=== PATIENT | female | born 1985 | race Caucasian/White ===

== ENCOUNTER 2018-08-01 06:17 | Inpatient (IN) | payer BC ==
[2018-08-01 06:45] VITALS: BMI 26.6
[2018-08-01] MEDS ORDERED: Nalbuphine HCL 10 mg/ml Ampule IVP PRN (06:45)
[2018-08-01] MEDS ORDERED: Oxytocin 30 UNIT 30 UNITS/500 ML BAG IV ONE ×2 (06:47→10:20)
[2018-08-01] MEDS ORDERED: Phenaphthazine-PH Test Paper VI ONE (06:48)
[2018-08-01] MEDS ORDERED: Nalbuphine 20 mg/ml Inj (1 ml) ONE (07:02)
[2018-08-01] MEDS: Lactated Ringer's 1,000 ML IV SCH ×4 (07:05→15:30)
[2018-08-01] MEDS ORDERED: ceFAZolin 2 GM in Sodium Chloride 0.9% 100 ML IVPB ONE ×2 (07:12→22:58)
[2018-08-01 07:25] LABS: HEMOGLOBIN 13.5 g/dL (12.0-16.0); MEAN CELL VOLUME 97.7 fl (81.0-99.0); MEAN CORPUSCULAR HEMOGLOBIN 33.9 pg (27.0-31.0); MEAN CORPUSCULAR HGB CONC 34.7 g/dL (33.0-37.0); RED CELL DISTRIBUTION WIDTH 12.5 % (11.5-14.5); WHITE BLOOD COUNT 10.7 K/uL (4.8-10.8)
[2018-08-01] MEDS ORDERED: Nalbuphine 20 mg/ml Inj (1 ml) IVP PRN (07:30)
[2018-08-01] MEDS ORDERED: Fentanyl/Bupivacaine HCl 250 ML EPI ONE (07:45)
[2018-08-01] MEDS ORDERED: ePHEDrine 50 mg/ml Inj ONE (08:53)
[2018-08-01] MEDS ORDERED: ceFAZolin 1 GM in Sodium Chloride 0.9% 50 ML IVPB SCH (09:00)
[2018-08-01] MEDS ORDERED: Alum-Mag Hydrox-Simethicone Susp (30 mL) PO PRN (14:49)
--- NOTE | 2018-08-01 15:40 | OBPN ---
Datetime: 08/01/2018 15:00 IP Progress Impression Other: decreased Urine output IP Progress Impression: Normal progression of labor; Reassuring heart rate IP Informed Consent Obtain: Vaginal Delivery; Risks, Benefits and Alternatives Discussed IP Progress Plan: Augmentation; Cervical Ripening; Anticipate Vaginal Delivery Membranes, Provider: Ruptured Contraction Comments Provider: 2-3m FHR - Baseline A Provider: 130 Presentation-Admit: Vertex IP Progress Note Comment: OB Hospitalist on-call. She was seen earlier today. She was admitted in latent phase of labor. She was given epidural and felt much better. She was re-echecked 10:20am...noted to be 3cm/AROM for augmentation (this was dis cussed prior to AROM/she agreed). She feels fine now. She was noted to have decreased urine output/ given 2 liter IVF SVE 6-7 cm / 100% / station ... Pitocin at 8miu/h A: Active phase of labor GBS+ Rh neg Decreased urine output ? position of eng[place] catheter (re-positioned) PLAN: continue pitocin; check BUN/Cr; monitor BP/Urine output ; anticiate (last sono last we ek 7.5lb) NICHD Accel Fetus A IP Provider: 15X15 FHR Category Provider Fetus A: Category I NICHD Variability Prov Fetus A: Moderate 6-25bpm Dilatation, Provider: 6-7 Effacement, Provider: 100 Station, Provider: 0 NICHD Decel Fetus A IP Provider: None Datetime: 08/01/2018 06:56 Vital Signs Provider: Reviewed; Within Normal Limits
[2018-08-01 16:02] LABS: ALBUMIN 3.4 g/dL (3.5-5.0); ALT/SGPT 22 U/L (9-52); AST/SGOT 21 U/L (14-36); BLOOD UREA NITROGEN 11 mg/dl (7-17); CALCIUM 8.8 mg/dL (8.4-10.2); GFR NON-AFRICAN AMERICAN > 60
--- NOTE | 2018-08-01 17:16 | CP.PCM.CON ---
History of Present Illness - History of Present Illness History of Present Illness: 32 y/o woman admitted to labor and delivery unit with uterine contractions. Medicine consult called for decreased urine output. Currently she is s/p epidural injection and on Pitocin infusion for labor induction. Patient feels well, complains of some abdominal pressure only . No history of any renal problems, HTN, preeclampsia Her BP is stable 110/ 56 and has been within normal parameters all day. Patient has been NPO since her contractions started and has been on IV RL total 2700 ml input .Golden catheter is in place with clear urine output ranging from 75-50-125 ml/hr BMP showed normal renal fxn BUN/Cr 11/0.5 with GFR > 60 ml Patient denies any CP, SOB Allergies ; PCN ( vomiting ) PMH ; None Medications; vitamins family history : none Surgery ; nasal bone fracture Social history : , lives in [place] with , unemployed , first , denies smoking ETOH or drug abuse Code status; full Review of Systems - Review of Systems All systems: reviewed and no additional remarkable complaints except Past Patient History - Infectious Disease Hx of Infectious Diseases: None - Tetanus Immunizations Tetanus Immunization: Unknown - Past Medical History & Family History Past Medical History?: No Past Family History: Reviewed and not pertinent - Past Social History Smoking Status: Never Smoked Cigar Use: No Alcohol: None Home Situation {Lives}: With Family Domestic Violence: Negative Meds Allergies/Adverse Reactions: Allergies Allergy/AdvReac Type Severity Reaction Status Date / Time Penicillins AdvReac VOMITING Verified 08/01/18 07:23 - Medications Medications: Current Medications Al Hydrox/Mg Hydrox/Simethicone (Maalox Plus 30 Ml) 30 ml PO Q4 PRN PRN Reason: Indigestion / Heartburn Last Admin: 08/01/18 15:17 Dose: 30 ml Lactated Ringer's (Lactated Ringer's) 1,000 mls @ 125 mls/hr IV .Q8H MARY JANE Last Admin: 08/01/18 15:30 Dose: 125 mls/hr OXYTOCIN/0.9 % NS (Oxytocin 20 Unit/1000 Ml-Ns) 20 unit in 1,000 mls @ 125 mls/hr IV .Q8H MARY JANE; Protocol Cefazolin Sodium 1 gm/ Sodium (Chloride) 50 mls @ 50 mls/hr IVPB Q8 MARY JANE; Protocol Last Admin: 08/01/18 15:45 Dose: 50 mls/hr Fentanyl/Bupivacaine HCl (Marcaine 0.125% With Fentanyl 2 Mcg/Ml Premix) 250 mls @ 10 mls/hr EPI .Q24H ONE Stop: 08/02/18 07:44 Last Admin: 08/01/18 08:48 Dose: 10 mls/hr Oxytocin (Pitocin) 30 units in 500 mls @ 2 mls/hr IV .Q24H ONE; Protocol Stop: 08/02/18 10:19 Last Admin: 08/01/18 10:35 Dose: 2 mls/hr Nalbuphine HCl (Nubain) 10 mg IVP ONCE PRN PRN Reason: Pain, moderate (4-7) Last Admin: 08/01/18 07:05 Dose: 10 mg Physical Exam - Constitutional Appears: Non-toxic, No Acute Distress Additional comments: - Head Exam Head Exam: ATRAUMATIC, NORMAL INSPECTION, NORMOCEPHALIC - Eye Exam Eye Exam: Normal appearance, PERRL Pupil Exam: NORMAL ACCOMODATION - ENT Exam ENT Exam: Mucous Membranes Moist, Normal Exam - Neck Exam Neck exam: Positive for: Full Rom, Normal Inspection - Respiratory Exam Respiratory Exam: Clear to Auscultation Bilateral, NORMAL BREATHING PATTERN. absent: Respiratory Distress - Cardiovascular Exam Cardiovascular Exam: REGULAR RHYTHM, +S1, +S2. absent: JVD - GI/Abdominal Exam Additional comments: - Rectal Exam Rectal Exam: Deferred - Extremities Exam Extremities exam: Positive for: normal capillary refill, normal inspection, pedal pulses present. Negative for: calf tenderness, pedal edema - Back Exam Back exam: NORMAL INSPECTION - Neurological Exam Neurological exam: Alert, CN II-XII Intact, Oriented x3 - Psychiatric Exam Psychiatric exam: Normal Affect - Skin Skin Exam: Dry, Intact, Normal Color, Warm Results - Labs Result Diagrams: 08/01/18 06:45 08/01/18 15:12 Labs: Laboratory Results - last 24 hr 08/01/18 08/01/18 08/01/18 06:45 06:45 09:40 WBC 10.7 RBC 4.00 Hgb 13.5 Hct 39.1 MCV 97.7 MCH 33.9 H MCHC 34.7 RDW 12.5 Plt Count 191 Sodium Potassium Chloride Carbon Dioxide Anion Gap BUN Creatinine Est GFR ( Amer) Est GFR (Non-Af Amer) Random Glucose Calcium Total Bilirubin AST ALT Alkaline Phosphatase Total Protein Albumin Globulin Albumin/Globulin Ratio Blood Type A NEGATIVE Blood Type Confirm A NEGATIVE Antibody Screen Negative BBK History Checked No verified bt 08/01/18 15:12 WBC RBC Hgb Hct MCV MCH MCHC RDW Plt Count Sodium 137 Potassium 4.3 Chloride 106 Carbon Dioxide 26 Anion Gap 9 L BUN 11 Creatinine 0.5 L Est GFR ( Amer) > 60 Est GFR (Non-Af Amer) > 60 Random Glucose 78 Calcium 8.8 Total Bilirubin 0.5 AST 21 ALT 22 Alkaline Phosphatase 108 Total Protein 6.6 Albumin 3.4 L Globulin 3.2 Albumin/Globulin Ratio 1.0 Blood Type Blood Type Confirm Antibody Screen BBK History Checked Assessment & Plan - Assessment and Plan (Free Text) Assessment: 32 y/o woman admitted to labor and delivery unit with uterine contractions. Medicine consult called for decreased urine output. At present her urine output is adequate ranging from 125 -- 50--75 ml /hr with normal kidney fxn .( normal range 33- 90 ml/hr ) Golden catheter is draining clear urine Continue hydration for now Re consult if her urine output is below 30 ml/hr despite hydration
[2018-08-01 17:54] LABS: SQUAMOUS EPITHIAL 1 /hpf (0-5); URINE BACTERIA RARE (<OCC); URINE BILIRUBIN NEGATIVE (NEGATIVE); URINE BLOOD NEGATIVE (NEGATIVE); URINE CLARITY CLOUDY (Clear); URINE COLOR YELLOW (YELLOW); URINE GLUCOSE (UA) NEG (Normal); URINE LEUKOCYTE ESTERASE TRACE Leu/uL (Negative); URINE PROTEIN 30 mg/dL (NEGATIVE); URINE UROBILINOGEN 0.2-1.0 mg/dL (0.2-1.0)
--- NOTE | 2018-08-01 19:03 | OBPN ---
Datetime: 08/01/2018 18:55 IP Progress Impression Other: Second stage of labor IP Progress Impression: Normal progression of labor IP Progress Plan: Continue present management; Augmentation; Anticipate Vaginal Delivery Membranes, Provider: Ruptured Contraction Comments Provider: 1-3m FHR - Baseline A Provider: 140 Presentation-Admit: Vertex IP Progress Note Comment: Notified of decelratons noted with some CTX (not everyone). She feels pres sure SVE 10cm FHR Accels noted with scalp stimulatoin Second stage of labor PLAN: pitocin at 8miu/h...will decrease Pitocin...will have her start pushing NICHD Accel Fetus A IP Provider: 15X15 FHR Category Provider Fetus A: Category II NICHD Variability Prov Fetus A: Moderate 6-25bpm Dilatation, Provider: 10 Effacement, Provider: 100 Station, Provider: 0 NICHD Decel Fetus A IP Provider: Variable
[2018-08-01] MEDS ORDERED: ceFAZolin IV 1 gm in Dextrose 1 GM/50 ML BAG IVPB SCH (22:00)
[2018-08-01] MEDS ORDERED: ceFAZolin 2 GM in Sodium Chloride 0.9% 100 ML IVPB STA (22:56)
--- NOTE | 2018-08-01 23:04 | OBPN ---
Datetime: 08/01/2018 22:50 IP Progress Impression: Arrest of dilatation/descent IP Informed Consent Obtain: Section Delivery; Risks, Benefits and Alternatives Discussed IP Progress Plan: Deliver- Section Presentation-Admit: Vertex IP Progress Note Comment: Epidural was shut off<1h ago ... pushing for 3h Failure of descent PLAN: C/S - infromed consent obtianed Dilatation, Provider: 10 Effacement, Provider: 100 Station, Provider: 1
[2018-08-01] MEDS ORDERED: Lidocaine 2% MPF (5 ml) Inj ONE (23:05)
[2018-08-01] MEDS ORDERED: Phenylephrine 10 mg/ml Inj ONE (23:09)
[2018-08-01] MEDS ORDERED: Propofol 10 mg/ml Inj (20 ML) ONE (23:23)
[2018-08-01] MEDS ORDERED: Succinylcholine 200 mg/10 ml Inj IV ONE (23:24)
[2018-08-01] MEDS ORDERED: Midazolam 2 MG/2 ML VIAL ONE ×2 (23:46→23:47)
[2018-08-01] MEDS ORDERED: Ketamine 50 mg/ml Inj (10 ml) ONE (23:49)
[2018-08-01] MEDS ORDERED: Flumazenil 0.1 mg/ml Inj (5ml) IVP ONE (23:52)
[2018-08-01] MEDS ORDERED: Esmolol 100 mg/10ml Inj IV ONE (23:54)
[2018-08-02] MEDS ORDERED: Absorbable Gelatin Sponge Size 12-7 ONE (00:05)
[2018-08-02] MEDS ORDERED: Propofol 10 mg/ml Inj (20 ML) ONE (00:17)
[2018-08-02] MEDS: OXYTOCIN/0.9 % NS 20 UNIT/1,000 ML BAG IV SCH ×2 (01:00→13:12)
[2018-08-02] MEDS ORDERED: OXYTOCIN/0.9 % NS 20 UNIT/1,000 ML BAG IV SCH ×2 (01:00→16:18)
[2018-08-02] MEDS ORDERED: DiphenhydrAMINE 50 mg/ml Inj IVP PRN ×2 (01:00→16:18)
[2018-08-02 07:23] LABS: HEMOGLOBIN 9.9 g/dL (12.0-16.0); MEAN CORPUSCULAR HEMOGLOBIN 33.8 pg (27.0-31.0); MEAN CORPUSCULAR HGB CONC 33.8 g/dL (33.0-37.0); RBC 2.94 Mil/uL (3.80-5.20); RED CELL DISTRIBUTION WIDTH 12.5 % (11.5-14.5)
[2018-08-02 07:50] LABS: MEAN CELL VOLUME 99.9 fl (81.0-99.0)
[2018-08-02] MEDS ORDERED: Multivitamin With Minerals Tab PO SCH (09:00)
--- NOTE | 2018-08-02 09:42 | OBPPN ---
Datetime: 08/02/2018 09:39 PP Pain Prov: Within normal limits PP Nausea Prov: Denies PP Flatus Prov: Yes PP Breasts Prov: Not Done PP Heart Prov: Normal PP Lungs Prov: Normal PP Abdomen/Uterus Prov: Normal PP Lochia Prov: Not Done PP Vulva/Perineum Prov: Not Done PP CVA Tenderness Prov: Normal PP Extremities Prov: Normal PP Impression Prov: Normal progression PP Plan Prov: Continue present management PP Progress Note Prov: Patient doing well ambulating tolerating diet Vital signs stable afebrile Uterus firm below the umbilicus Incision clean dry and intact day #1 Ambulate, regular diet, analgesias needed DC IV fluid and Golden catheter Vital Signs Provider PP: Reviewed
[2018-08-02] MEDS ORDERED: Nalbuphine HCL 10 mg/ml Ampule IVP PRN (16:18)
[2018-08-02] MEDS ORDERED: Alum-Mag Hydrox-Simethicone Susp (30 mL) PO PRN (16:18)
[2018-08-02] MEDS ORDERED: Influenza Vaccine (5 YR UP)/PF 60 MCG/0.5 ML SYR IM ONE (19:02)
[2018-08-02] MEDS: Lactated Ringer's 1,000 ML IV SCH (20:27)
[2018-08-03] MEDS: Lactated Ringer's 1,000 ML IV SCH (04:27)
[2018-08-03] MEDS: Multivitamin With Minerals Tab PO SCH (09:51)
[2018-08-03] MEDS: Oxycodone/Acetaminophen 5/325 mg Tab PO PRN ×3 (09:51→20:28)
[2018-08-03] MEDS ORDERED: Influenza Vaccine (5 YR UP)/PF 60 MCG/0.5 ML SYR IM ONE (10:00)
[2018-08-03] MEDS: Simethicone 80 mg Chewtab PO PRN (20:27)
[2018-08-04] MEDS: Oxycodone/Acetaminophen 5/325 mg Tab PO PRN ×2 (01:24→06:43)
--- NOTE | 2018-08-04 03:46 | OBPPN ---
Datetime: 08/03/2018 12:41 PP Pain Prov: Within normal limits PP Nausea Prov: Denies PP Flatus Prov: Yes PP Breasts Prov: Normal PP Heart Prov: Normal PP Lungs Prov: Normal PP Abdomen/Uterus Prov: Normal PP Lochia Prov: Normal PP Vulva/Perineum Prov: Normal PP CVA Tenderness Prov: Normal PP Extremities Prov: Normal PP Comments Phys Exam Prov: Abdomen soft, nontender, nondistended Uterus firm, below umbilicus Incision clean, dry, intact No deep calf tenderness bilaterally PP Impression Prov: Normal progression PP Plan Prov: Continue present management PP Progress Note Prov: Postoperative day #2 status post , patient recovering well Pain control Patient out of bed and ambulating Regular diet Anticipate discharge home tomorrow IP PP Procedures: None Vital Signs Provider PP: Reviewed; Within Normal Limits
--- NOTE | 2018-08-04 08:27 | OP ---
PROCEDURE DATE: 08/01/2018 PREOPERATIVE DIAGNOSIS: Failure of descent. POSTOPERATIVE DIAGNOSIS: Failure of descent. PROCEDURE: Primary low transverse section via Pfannenstiel incision. SURGEON: Evelio Linn DO SPEECH AND DRAMA TEACHER: Dylan Villafuerte MD (Dr. Dylan Villafuerte is a board certified OB[employer] physician who was available for this typical case. He was present from the time of incision through the time of delivery to the time of skin closure. His presence was vital and necessary for the procedure). SECOND SPEECH AND DRAMA TEACHER: PGY-1, Dr. Ramin Chauhan. ANESTHESIOLOGIST: Bhavna Walters MD ANESTHESIA: Initially epidural, intraoperatively IV sedation and then general intubation. OPERATIVE FINDINGS: Live male infant, delivered from the cephalic presentation, was crying spontaneously. Clear amniotic fluid noted. scores of 9 and 9 given at 1 and 5 minutes respectively. Placenta was delivered intact manually. Ovaries and tubes appeared to be within normal limits grossly. Uterine extension noted bilaterally and repaired without complications. She remained hemodynamically stable and was brought to the recovery room in stable condition. ESTIMATED BLOOD LOSS: 800 mL. DESCRIPTION OF PROCEDURE: The patient was brought to the operating room. She had compression boots placed on both lower extremities. After epidural anesthesia dosing, she was placed in supine position and a Golden catheter was placed in the bladder and noted to be draining clear urine. She was then draped and prepped in the usual sterile manner. Adequate anesthesia was confirmed and then skin incision was made using a scalpel in a Pfannenstiel fashion. Incision was then taken down to underlying fascia using electrocautery. Fascia was nicked in the midline and then extended bilaterally using electrocautery. Inferior aspect of the fascia was grasped using two Alfa clamps, tented up and the rectus muscle was both bluntly and sharply dissected. The same was done in the superior aspect of the fascia. In the midline superiorly, the rectus muscle was bluntly. Peritoneum identified, was tented up using two Muriel clamps and then incised. Using Metzenbaum scissors, the incision was then extended superiorly and inferiorly with good visualization of the bladder and intestines. A bladder blade was then inserted. Two wet lap pads were placed in the paracolic gutters. We noted where the bladder was and incision was made on the uterus above the bladder line using Metzenbaum scissors and then extended bilaterally using Metzenbaum scissors. Bladder flap was created digitally. Bladder blade was then inserted behind the bladder flap. A low transverse incision was made using a scalpel. Upon entering the uterus, the incision was then extended bilaterally digitally. Clear amniotic fluid was noted upon rupture of membranes. Thereafter, the 's head was delivered as atraumatically as possible with the assistance of one of the nurses assisting from down below pushing through the vagina. Once the infant's head was delivered as atraumatically as possible, the was bulb suctioned nasopharyngeally. The remainder of the was then delivered as atraumatically as possible and bulb suctioned. The cord was clamped and cut. The infant was handed to the casket trimmer in attendance. The was crying spontaneously. Cord bloods were obtained. Placenta was delivered intact manually. The patient was noted starting to be anxious. Uterus was then exteriorized. She was given IV sedation, IV Pitocin. Good contracture of the uterus was noted. Bilateral uterine extensions were noted. Bladder blade was then inserted. To assist in during the case, decision was made to induce general anesthesia at this point. Once anesthesia was obtained, we were able to continue with the case. The lower uterine aspect was identified and grasped using two Allis clamps. Both uterine extensions were repaired using 0 Vicryl sutures x2. The low transverse incision was then closed using 0 Vicryl suture in a running fashion. Thereafter, using a 0 Vicryl suture, the second layer then was closed imbricating the first layer, good hemostasis being assured. Decision was made to place Gelfoam on both sides under the bladder flap. All equipments were removed and accounted for. Copious irrigation was placed in the posterior cul-de-sac. Irrigation was performed. Uterus was placed back into the peritoneal cavity. Incision line was reinspected and noted to have good hemostasis. All equipments were removed and accounted for. A 0 Vicryl suture was used to approximate the peritoneum in a running fashion. Rectus muscle was noted to have good hemostasis and approximated x3 using 0 Vicryl sutures. A 0 Vicryl suture was used to approximate the fascial layer in a running fashion. Irrigation was performed. The subcuticular layer was noted to have good hemostasis, was approximated using 2-0 plain suture. Skin was then approximated using 3-0 Vicryl suture in a running fashion. Dermabond, Steri-Strips and pressure bandage were applied. All equipment was removed and accounted for. She was successfully reversed from general anesthesia and brought to the recovery room in stable condition. Evelio Linn DO XIOMARA
[2018-08-04] MEDS: Multivitamin With Minerals Tab PO SCH (08:52)
[2018-08-04] MEDS: Simethicone 80 mg Chewtab PO PRN (08:52)
[2018-08-04] MEDS ORDERED: Measles, Mumps, and Rubella 0.5 ML VIAL SC ONE (10:00)
--- NOTE | 2018-08-04 10:34 | OBDCSUM ---
Datetime: 08/04/2018 10:02 Discharged to, Provider: Home Follow up at, Provider: Jos Disch Instr Activity: Normal activity Disch Instr Diet: Regular Discharge Diagnosis, Provider: Term Delivered Discharge Time: 08/04/2018 10:00 Follow up in weeks, Provider: 1 Week Disch Referrals: None Disch Activity Restrictions: No sexual activity; Nothing in vagina - [place], tampons, douche
--- NOTE | 2018-08-04 10:34 | OBPPN ---
Datetime: 08/04/2018 08:30 PP Pain Prov: Within normal limits PP Nausea Prov: Denies PP Flatus Prov: Yes PP BM Prov: No PP Breasts Prov: Normal PP Heart Prov: Normal PP Lungs Prov: Normal PP Abdomen/Uterus Prov: Normal PP Lochia Prov: Normal PP Vulva/Perineum Prov: Normal PP CVA Tenderness Prov: Normal PP Extremities Prov: Normal PP C/S Incision Prov: Normal PP Progress Prov: Normal PP Impression Prov: Normal progression PP Plan Prov: Discharge PP Progress Note Prov: She feels incisional pain relieved with Percoset more than Motrin. no BM yet . Passing gas. A S/P day 3 Anemia - asymptomatic PLAN: Dulcolax supp pain managemnt discussed ava López up in 1-2w Vital Signs Provider PP: Reviewed; Within Normal Limits
[2018-08-04 23:19] VITALS: BP 119/73; PULSE 78; RESP 16; TEMP 98; O2SAT 98
== END 2018-08-04 18:30 | disposition home or self-care (01) | DRG 788 ==
LOC: H.EROB2 06:17 → H.L&D 06:45 → H.OB/GYN 08-02 09:00
PROVIDERS: ADMIT Obstetrics & Gynecology; ATTEND Obstetrics & Gynecology
PROC: 10D00Z1 Extraction of Products of Conception, Low, Open Approach (ICD-10-PCS; principal; 2018-08-01)
PROC: 4A1HXCZ Monitoring of Products of Conception, Cardiac Rate, External Approach (ICD-10-PCS; 2018-08-01)
DX: O62.0 Primary inadequate contractions (principal); O32.4XX0 Maternal care for high head at term, not applicable or unspecified; O99.824 Streptococcus B carrier state complicating childbirth; Z37.0 Single live birth; Z88.0 Allergy status to penicillin; Z3A.41 41 weeks gestation of pregnancy